=== PATIENT | female | born 1995 | race Caucasian/White ===

== ENCOUNTER 2017-06-17 19:43 | Emergency (ER) | payer SELFPAY | END 2017-06-17 19:47 | disposition short-term general hospital (02) | LOC: ER 19:43 | DX: R69 Illness, unspecified (principal) ==

== ENCOUNTER → 2017-06-17 | Outpatient (CLI) | payer OTHER ==
--- NOTE | 2017-06-17 17:31 | Diagnostic Imaging Report ---
PROCEDURE: Frontal and lateral views of the chest. COMPARISON: None. INDICATIONS: COUGH, PNEUMONIA FINDINGS: Lines/tubes: None. Lungs: The lungs are well inflated. Air space opacity/consolidation, located in the superior segment of the right lower lobe. The rest of the lungs is clear. Pleura: There is no pleural effusion or pneumothorax. Heart and mediastinum: Cardiac silhouette is unremarkable. Pulmonary vasculature is normal. Bones: No acute bony abnormality. IMPRESSION: 1. findings likely represent right lower lobe pneumonia, in the appropriate clinical setting. Recommend chest PA and lateral 4-6 weeks after appropriate treatment to document stability. Michael Fuentes M.D. Dictated by: Michael Fuentes M.D. on 06/17/2017 at 17:40 Electronically approved by: Michael Fuentes M.D. on 06/17/2017 at 17:40
== END ==
LOC: RAD 16:21
PROVIDERS: ATTEND Family Medicine
DX: J40 Bronchitis, not specified as acute or chronic (principal)
CPT/HCPCS: 71020